=== PATIENT | male | born 1945 | race Caucasian/White ===

== ENCOUNTER 2020-10-15 02:30 | Emergency (ER) | payer OTHER, MEDICARE ==
[~2020-10-15] VITALS: Ht 175.3 cm; Wt 86.4 kg
[2020-10-15] MEDS ORDERED: nitroGLYCERIN-Tridil 50MG/D5W 250 ML IV PRN ×2 (02:40→02:55)
[2020-10-15] MEDS ORDERED: heparin 25,000 UNIT/250ml bag 250 ML IV SCH (02:45)
[2020-10-15] MEDS ORDERED: heparin 10,000 units/1 ML INJ IV ONE ×2 (02:45→02:55)
[2020-10-15] MEDS ORDERED: heparin 10,000 units/1 ML INJ IV PRN (02:45)
[2020-10-15 02:53] LABS: BASOPHILS % (AUTO) 0.6 % (0-1); EOSINOPHILS # (AUTO) 0.2 X10'3 (0-0.9); EOSINOPHILS % (AUTO) 3.2 % (0-6); HEMATOCRIT 41.9 % (42.0-52.0); HEMOGLOBIN 13.8 g/dl (14.0-17.9); LYMPHOCYTES # (AUTO) 1.5 X10'3 (1.1-4.8); LYMPHOCYTES % (AUTO) 21.3 % (21-51); MEAN CORPUSCULAR VOLUME 93.8 FL (78-98); MEAN PLATELET VOLUME 8.9 FL (7.4-10.4); MONOCYTES # (AUTO) 0.7 X10'3 (0-0.9); MONOCYTES % (AUTO) 9.9 % (2-12); NEUTROPHILS # (AUTO) 4.4 X10'3 (1.8-7.7); PLATELET COUNT 161 X10'3 (140-440); RED BLOOD COUNT 4.47 X10'6 (4.70-6.10); WHITE BLOOD COUNT 6.8 X10'3 (4.5-11.0)
[2020-10-15 03:02] LABS: PARTIAL THROMBOPLASTIN TIME 35 SECONDS (22-32)
[2020-10-15 03:04] LABS: ALANINE AMINOTRANSFERASE 41 U/L (12-78); ALBUMIN 3.6 G/DL (3.4-5.0); ALBUMIN/GLOBULIN RATIO 1.1 (1.1-1.5); ALKALINE PHOSPHATASE 120 IU/L (46-116); ANION GAP 11 (8-16); ASPARTATE AMINO TRANSFERASE 26 U/L (10-37); BILIRUBIN,TOTAL 0.2 MG/DL (0.1-1.0); BLOOD UREA NITROGEN 24 MG/DL (7-18); BUN/CREATININE RATIO 14.6 (5.4-32.0); CHLORIDE 106 MMOL/L (99-107); CREATININE 1.64 MG/DL (0.60-1.10); GLUCOSE 172 MG/DL (70-104); POTASSIUM 4.5 MMOL/L (3.5-5.1); SODIUM 142 MMOL/L (135-145); TOTAL CARBON DIOXIDE 25.3 MMOL/L (24-32); TOTAL PROTEIN 6.9 G/DL (6.4-8.2); eGFR 41 ML/MIN
--- NOTE | 2020-10-15 05:58 | NUR ---
L forearm IV infiltrated and was taken out with cannula intact. at bedside. 3HR Trop pending.
--- NOTE | 2020-10-15 06:55 | NUR ---
Heprin infusion stopped and MD Valladares aware pt Nitro gtt stopped by prior shift approx 0600. Pt CP to be monitored and if pt remains without CP pt may be discharged home around 0730am.
[2020-10-15 07:34] VITALS: BP 155/86
== END 2020-10-15 07:38 | disposition home or self-care (01) ==
LOC: ER 02:31
DX: R07.89 Other chest pain (principal); I25.10 Atherosclerotic heart disease of native coronary artery without angina pectoris; I10 Essential (primary) hypertension; Z88.8 Allergy status to other drugs, medicaments and biological substances
CPT/HCPCS: 36415; 71045; 80053; 83735; 83880; 84484; 85025; 85610; 85730; 93005; 96365; 96366; 96376; 99285; J1644

== ENCOUNTER 2020-10-17 10:38 | Day surgery (SDC) | payer MEDICARE ==
[~2020-10-17] VITALS: Ht 175.3 cm; Wt 90.0 kg
[2020-10-17] VITALS (11 sets, daily range): BP systolic 133–162; BP diastolic 57–108
[2020-10-17] MEDS ORDERED: LORazepam 0.5 MG tablet PO PRN (10:55)
[2020-10-17] MEDS ORDERED: LIDOcaine/PRILOcaine 5gm cream TP ONE (10:55)
[2020-10-17] MEDS ORDERED: diphenhydrAMINE 25mg capsule PO PRN (10:55)
[2020-10-17] MEDS ORDERED: normal saline 1,000 ML IV SCH (10:55)
[2020-10-17] MEDS ORDERED: NITR0.4T51 SL (11:19)
[2020-10-17] MEDS ORDERED: DILT120C88 PO (11:19)
[2020-10-17] MEDS ORDERED: AMIO200T62 PO (11:19)
[2020-10-17] MEDS ORDERED: METF500T PO (11:19)
[2020-10-17] MEDS ORDERED: ATOR40TA PO (11:19)
[2020-10-17] MEDS ORDERED: LOP25T PO (11:19)
[2020-10-17] MEDS ORDERED: LOSA25TA96 PO (11:19)
[2020-10-17] MEDS ORDERED: RIVA20TA PO (11:19)
[2020-10-17] MEDS ORDERED: CHOL100025 PO (11:19)
[2020-10-17] MEDS ORDERED: SILD50TA PO (11:19)
[2020-10-17 12:25] LABS: BASOPHILS % (AUTO) 0.7 % (0-1); EOSINOPHILS # (AUTO) 0.2 X10'3 (0-0.9); EOSINOPHILS % (AUTO) 2.9 % (0-6); HEMATOCRIT 41.2 % (42.0-52.0); HEMOGLOBIN 13.5 g/dl (14.0-17.9); LYMPHOCYTES # (AUTO) 1.1 X10'3 (1.1-4.8); LYMPHOCYTES % (AUTO) 17.1 % (21-51); MEAN CORPUSCULAR HEMOGLOBIN 30.6 PG (27.0-31.0); MEAN CORPUSCULAR HGB CONC 32.7 g/dL (33.0-36.5); MEAN CORPUSCULAR VOLUME 93.5 FL (78-98); MEAN PLATELET VOLUME 9.2 FL (7.4-10.4); MONOCYTES # (AUTO) 0.6 X10'3 (0-0.9); MONOCYTES % (AUTO) 9.7 % (2-12); NEUTROPHILS # (AUTO) 4.7 X10'3 (1.8-7.7); NEUTROPHILS % (AUTO) 69.6 % (42-75); PLATELET COUNT 185 X10'3 (140-440); RED BLOOD COUNT 4.41 X10'6 (4.70-6.10); RED CELL DISTRIBUTION WIDTH 14.9 % (11.5-14.5); WHITE BLOOD COUNT 6.7 X10'3 (4.5-11.0)
[2020-10-17 12:33] LABS: ALBUMIN 3.7 G/DL (3.4-5.0); ANION GAP 8 (8-16); BLOOD UREA NITROGEN 23 MG/DL (7-18); BUN/CREATININE RATIO 15.4 (5.4-32.0); CALCIUM 8.9 MG/DL (8.5-10.1); CHLORIDE 106 MMOL/L (99-107); CREATININE 1.49 MG/DL (0.60-1.10); GLUCOSE 140 MG/DL (70-104); POTASSIUM 4.9 MMOL/L (3.5-5.1); SODIUM 141 MMOL/L (135-145); TOTAL CARBON DIOXIDE 26.7 MMOL/L (24-32); eGFR 46 ML/MIN
[2020-10-17 12:38] LABS: PARTIAL THROMBOPLASTIN TIME 27 SECONDS (22-32)
[2020-10-17] MEDS ORDERED: verapamil 2.5 mg/ml inj IV ONE (14:57)
[2020-10-17] MEDS ORDERED: nitroGLYCERIN-Tridil 50MG/D5W 250 ML IV ONE (14:57)
[2020-10-17] MEDS ORDERED: midazolam 1 mg/ML 2ml injection ONE (14:58)
[2020-10-17] MEDS ORDERED: fentaNYL/PF 50MCG/1 ML 2ML syringe ONE (14:58)
[2020-10-17] MEDS ORDERED: heparin 1,000unit/ml 10ml vial 10 ML ONE (14:58)
[2020-10-17] MEDS ORDERED: LIDOcaine 1% (10mg/ml)w/preservative injection 20ml MDV ONE (14:58)
[2020-10-17] MEDS ORDERED: iohexol 350MG/ML 100ml bottle IV ONE ×2 (14:58→15:29)
[2020-10-17] MEDS ORDERED: ticagrelor 90mg tablet ONE (15:47)
--- NOTE | 2020-10-17 16:00 | NUR ---
JUAN RN GAVE PATIENT 180MG PO BRILINTA AT BEDSIDE WHEN PATIENT RETURNED TO ROOM. PATIENT VITALS STABLE, VASC BAND CDI, NO HEMATOMA.
[2020-10-17] MEDS ORDERED: HYDROcodone/acetaminophen 10/325mg tab PO PRN (16:35)
[2020-10-17] MEDS ORDERED: ondansetron/PF 4mg/2ml inj IV PRN (16:35)
[2020-10-17] MEDS ORDERED: HYDROcodone/acetaminophen 5mg/325mg tablet PO PRN (16:35)
[2020-10-17] MEDS ORDERED: proCHLORperazine 10 MG/2 ml inj IV PRN (16:35)
[2020-10-17] MEDS ORDERED: OXAZEpam 15mg capsule PO PRN (16:35)
== END 2020-10-17 20:30 | disposition home or self-care (01) ==
LOC: SSTAY O 10:38
PROVIDERS: ATTEND Internal Medicine Interventional Cardiology
DX: I25.110 Atherosclerotic heart disease of native coronary artery with unstable angina pectoris (principal); E11.9 Type 2 diabetes mellitus without complications; I10 Essential (primary) hypertension; I48.0 Paroxysmal atrial fibrillation; E78.5 Hyperlipidemia, unspecified; Z95.5 Presence of coronary angioplasty implant and graft; Z88.8 Allergy status to other drugs, medicaments and biological substances; Z79.899 Other long term (current) drug therapy; Z79.84 Long term (current) use of oral hypoglycemic drugs
CPT/HCPCS: 36415; 80048; 82948; 85025; 85610; 85730; 93005; 93458; 99152; 99153; C1725; C1751; C1769; C1874; C1894; C9600; J1644; J2001; J2250; J3010; J7030; Q0163; Q9967; A4620; J3490

== ENCOUNTER 2021-06-26 09:50 | Outpatient (CLI) | payer MEDICARE ==
[2021-06-26] VITALS (19 sets, daily range): BP systolic 129–205; BP diastolic 73–106
[~2021-06-26 09:50] MED LIST: AMIO200T62 PO; ATOR40TA PO; CHOL100025 PO; DILT120C88 PO; LOP25T PO; LOSA25TA96 PO; METF500T PO; NITR0.4T51 SL; RIVA20TA PO; SILD50TA PO
== END 2021-06-26 23:59 | disposition home or self-care (01) ==
LOC: CARD DIAG 09:50
PROVIDERS: ATTEND Internal Medicine Interventional Cardiology
DX: R55 Syncope and collapse (principal)
CPT/HCPCS: 93660

== ENCOUNTER 2021-09-03 18:26 | Inpatient (IN) | payer MEDICARE ==
[~2021-09-03] VITALS: Ht 152.4 cm; Wt 89.5 kg
--- NOTE | 2021-09-03 18:44 | NUR ---
SPOKE W/ DR MCFARLAND S/P TRIAGING PT. HE HAS REVIEWED EKG. LABS ARE BEING DRAWN IN ROOM 19.
[2021-09-03] MEDS ORDERED: hydrALAZINE 20mg/ml inj. IV ONE (18:55)
[2021-09-03] MEDS ORDERED: aspirin 325mg tablet PO ONE (18:55)
[2021-09-03 18:57] LABS: BASOPHILS # (AUTO) 0.1 X10'3 (0-0.2); BASOPHILS % (AUTO) 0.9 % (0-1); EOSINOPHILS # (AUTO) 0.1 X10'3 (0-0.9); EOSINOPHILS % (AUTO) 2.1 % (0-6); HEMATOCRIT 38.8 % (42.0-52.0); HEMOGLOBIN 12.5 g/dl (14.0-17.9); LYMPHOCYTES # (AUTO) 1.3 X10'3 (1.1-4.8); MEAN CORPUSCULAR HEMOGLOBIN 28.8 PG (27.0-31.0); MEAN CORPUSCULAR HGB CONC 32.2 g/dL (33.0-36.5); MEAN CORPUSCULAR VOLUME 89.2 FL (78-98); MEAN PLATELET VOLUME 8.7 FL (7.4-10.4); MONOCYTES # (AUTO) 0.4 X10'3 (0-0.9); MONOCYTES % (AUTO) 6.6 % (2-12); NEUTROPHILS # (AUTO) 4.6 X10'3 (1.8-7.7); NEUTROPHILS % (AUTO) 70.4 % (42-75); PLATELET COUNT 184 X10'3 (140-440); RED BLOOD COUNT 4.35 X10'6 (4.70-6.10); RED CELL DISTRIBUTION WIDTH 14.1 % (11.5-14.5); WHITE BLOOD COUNT 6.5 X10'3 (4.5-11.0)
[2021-09-03 19:10] LABS: ALANINE AMINOTRANSFERASE 34 U/L (12-78); ALBUMIN 3.5 G/DL (3.4-5.0); ALBUMIN/GLOBULIN RATIO 1.1 (1.1-1.5); ALKALINE PHOSPHATASE 84 IU/L (46-116); ANION GAP 9 (8-16); ASPARTATE AMINO TRANSFERASE 29 U/L (10-37); BILIRUBIN,TOTAL 0.3 MG/DL (0.1-1.0); BLOOD UREA NITROGEN 26 MG/DL (7-18); BUN/CREATININE RATIO 18.7 (5.4-32.0); CALCIUM 9.1 MG/DL (8.5-10.1); CHLORIDE 105 MMOL/L (99-107); CREATININE 1.39 MG/DL (0.60-1.10); GLUCOSE 140 MG/DL (70-104); POTASSIUM 4.3 MMOL/L (3.5-5.1); SODIUM 140 MMOL/L (135-145); TOTAL CARBON DIOXIDE 25.9 MMOL/L (24-32); TOTAL PROTEIN 6.8 G/DL (6.4-8.2); eGFR 50 ML/MIN
[2021-09-03] MEDS ORDERED: heparin 25,000 UNIT/250ml bag 250 ML IV SCH (19:50)
[2021-09-03] MEDS ORDERED: heparin 10,000 units/1 ML INJ IV ONE (19:50)
[2021-09-03] MEDS ORDERED: heparin 10,000 units/1 ML INJ IV PRN (19:50)
[2021-09-03 20:05] LABS: APTT 28 SECONDS (22-32)
--- NOTE | 2021-09-03 20:09 | NUR ---
PATIENT ID Addendum: 09/03/21 at 2009 by TELMORE PATIENT AT THIS TIME IS EXPERINCEING INTERMITTENT CHEST PAIN THAT LAST ABOUT SECONDS, X 2 PATIENT ALSO STATES THAT HE IS FEELING SOB
[2021-09-03] MEDS ORDERED: fentaNYL/PF 50MCG/1 ML 2ML syringe IV ONE (20:15)
[2021-09-03] MEDS ORDERED: CLOP75TA4 PO (20:21)
[2021-09-03] MEDS ORDERED: ASPI-257 PO (20:21)
--- NOTE | 2021-09-03 20:22 | NUR ---
PATIENT STATES THAT HIS INTENSITY HAS GROWN IN THE LAST HOUR, HE SAID THE PAIN IS IDENTICAL TO WHEN HE WAS HAVING A MS
[2021-09-04] VITALS (7 sets, daily range): BP systolic 159–188; BP diastolic 73–92
[2021-09-04] MEDS ORDERED: MESSAGE TO PHARMACY PO ONE (00:15)
[2021-09-04] MEDS ORDERED: bisacodyl 10mg suppository rectal RC PRN (00:15)
[2021-09-04] MEDS ORDERED: glucagon, human recombinant 1mg kit SUBCUT PRN (00:15)
[2021-09-04] MEDS ORDERED: HYDROcodone/acetaminophen 10/325mg tab PO PRN (00:15)
[2021-09-04] MEDS ORDERED: acetaminophen 650mg rectal suppository RC PRN (00:15)
[2021-09-04] MEDS ORDERED: ondansetron/PF 4mg/2ml inj IV PRN (00:15)
[2021-09-04] MEDS ORDERED: diphenhydrAMINE 25mg capsule PO PRN (00:15)
[2021-09-04] MEDS ORDERED: diphenhydrAMINE 50 mg/ml inj IV PRN (00:15)
[2021-09-04] MEDS ORDERED: magnesium hydroxide 30ml (MOM) UD suspension PO PRN (00:15)
[2021-09-04] MEDS ORDERED: DEXTROSE 15 GM of carb/4 tabs (each vial/BOTTLE has 4 tablets) PO PRN ×2 (00:15)
[2021-09-04] MEDS ORDERED: acetaminophen 325mg tablet PO PRN ×2 (00:15)
[2021-09-04] MEDS ORDERED: HYDROcodone/acetaminophen 5mg/325mg tablet PO PRN (00:15)
[2021-09-04] MEDS ORDERED: dextrose 50%-water 50ml dispensing syringe IV PRN ×2 (00:15)
[2021-09-04] MEDS ORDERED: morphine 2 MG/ML inj. syringe IV PRN (00:15)
[2021-09-04] MEDS ORDERED: mag hydrox/Alum hydrox/simeth 30ml oral suspension PO PRN (00:15)
[2021-09-04] MEDS: normal saline 1000ml 1,000 ML IV SCH ×3 (01:09→18:00)
[2021-09-04 02:05] LABS: BASOPHILS % (AUTO) 0.3 % (0-1); EOSINOPHILS # (AUTO) 0.2 X10'3 (0-0.9); EOSINOPHILS % (AUTO) 3.2 % (0-6); HEMATOCRIT 36.6 % (42.0-52.0); LYMPHOCYTES # (AUTO) 1.8 X10'3 (1.1-4.8); LYMPHOCYTES % (AUTO) 28.3 % (21-51); MEAN CORPUSCULAR HGB CONC 32.8 g/dL (33.0-36.5); MEAN CORPUSCULAR VOLUME 88.4 FL (78-98); MEAN PLATELET VOLUME 9.1 FL (7.4-10.4); MONOCYTES # (AUTO) 0.6 X10'3 (0-0.9); MONOCYTES % (AUTO) 8.7 % (2-12); NEUTROPHILS # (AUTO) 3.9 X10'3 (1.8-7.7); NEUTROPHILS % (AUTO) 59.5 % (42-75); PLATELET COUNT 182 X10'3 (140-440); RED BLOOD COUNT 4.14 X10'6 (4.70-6.10); RED CELL DISTRIBUTION WIDTH 13.7 % (11.5-14.5); WHITE BLOOD COUNT 6.5 X10'3 (4.5-11.0)
[2021-09-04 02:19] LABS: HEMOGLOBIN A1C 7.4 % (4.5-6.2)
[2021-09-04 02:21] LABS: MAGNESIUM 1.9 MG/DL (1.5-2.4); PHOSPHORUS 3.1 MG/DL (2.3-4.5)
[2021-09-04 02:33] LABS: D-DIMER < 0.19 MG/L FEU (0-0.50)
[2021-09-04] MEDS ORDERED: nitroGLYCERIN 0.4mg SUBLingual tab SL PRN (02:35)
[2021-09-04] MEDS ORDERED: clopidogrel 75mg tablet PO SCH (02:41)
[2021-09-04] MEDS ORDERED: hydrALAZINE 20mg/ml inj. IV ONE (02:45)
[2021-09-04] MEDS: clopidogrel 75mg tablet PO SCH ×2 (02:50→21:45)
--- NOTE | 2021-09-04 03:12 | NUR ---
received report. pt waiting for PTT result. NPO since came to ER. room ready for patient.
[2021-09-04 03:25] LABS: APTT 46 SECONDS (22-32)
--- NOTE | 2021-09-04 04:45 | NUR ---
pt c/o chest pain, sub sternal, sharp, then disappears after a few seconds. pt declines morphine, norco or nitro at this time. will notify RN if anything changes. oriented to room, call light, urinal, has emesis bag at bedside. heparin and NS infusing
--- NOTE | 2021-09-04 06:17 | NUR ---
reported to days. noted pt resting, eyes closed. called to check on patient and see about visiting. will arrive around 8am
--- NOTE | 2021-09-04 07:16 | NUR ---
Paged Dr Augustin PAGER ID: [phone] MESSAGE: [phone]. Shoaib Kc. Bhumika scan? Thx, Rosana [phone]
[2021-09-04] MEDS: pantoprazole 40mg Tablet.DR PO SCH (07:40)
[2021-09-04] MEDS: diltiazem CD 120mg capsule (once-daily) PO SCH (07:40)
[2021-09-04] MEDS: docusate sod 100mg capsule PO SCH ×2 (07:41→21:39)
[2021-09-04] MEDS: amiodarone 200mg tablet PO SCH (07:49)
[2021-09-04] MEDS: atorvastatin 20mg tablet PO SCH (07:51)
[2021-09-04] MEDS: metoprolol tartrate 25mg tablet PO SCH ×2 (07:53→20:00)
[2021-09-04] MEDS ORDERED: losartan 25mg tablet PO SCH (08:00)
[2021-09-04] MEDS: aspirin 81mg, enteric-coated 1 TAB TABLET.DR PO SCH (08:00)
[2021-09-04] MEDS: rivaroxaban 20mg tablet PO SCH (08:00)
--- NOTE | 2021-09-04 08:24 | NUR ---
Per Dr Augustin, ok to hold xarelto for today.
[2021-09-04] MEDS: morphine 2 MG/ML inj. syringe IV PRN ×2 (09:08→14:50)
--- NOTE | 2021-09-04 11:35 | NUR ---
DM consult: Noted pt w/ hx of DM A1c 7.4. Written DM ed w/ RD contact info placed in pt chart. Addendum: 09/04/21 at [address] Amended: Links added.
[2021-09-04] MEDS: insulin Lispro (HumaLOG) vial - multi-dose SQ SCH (14:14)
[2021-09-04] MEDS: ondansetron 4mg rapidly disintigrating tab PO PRN (16:06)
[2021-09-04] MEDS ORDERED: nitroGLYCERIN-Tridil 50MG/D5W 250 ML IV ONE (17:05)
[2021-09-04] MEDS ORDERED: midazolam 1 mg/ML 2ml injection ONE (17:06)
[2021-09-04] MEDS ORDERED: fentaNYL/PF 50MCG/1 ML 2ML syringe ONE (17:06)
[2021-09-04] MEDS ORDERED: LIDOcaine 1% (10mg/ml)w/preservative inj. 20ml MDV ONE (17:06)
[2021-09-04] MEDS ORDERED: verapamil 2.5 mg/ml inj IV ONE (17:06)
[2021-09-04] MEDS ORDERED: heparin 1,000unit/ml 10ml vial 10 ML ONE (17:06)
[2021-09-04] MEDS ORDERED: iohexol 350MG/ML 100ml bottle IV ONE (17:06)
--- NOTE | 2021-09-04 18:28 | NUR ---
Patient in room MED 318. I have received report from TREVIN Wayne and had the opportunity to ask questions and assume patient care.
[2021-09-04] MEDS ORDERED: heparin 25,000 UNIT/250ml bag 250 ML IV ONE (18:51)
[2021-09-04] MEDS ORDERED: ondansetron/PF 4mg/2ml inj IM ONE (19:30)
[2021-09-04] MEDS ORDERED: ondansetron/PF 4mg/2ml inj IV ONE (20:00)
[2021-09-04] MEDS ORDERED: insulin glargine (Lantus) pen - multi-dose SQ SCH (21:00)
[2021-09-04] MEDS: temazepam 15mg capsule PO PRN ×2 (21:38→21:44)
[2021-09-04] MEDS ORDERED: hydrALAZINE 20mg/ml inj. IV PRN ×2 (21:55→22:10)
[2021-09-05 02:00] VITALS: BP 157/65
[2021-09-05] MEDS: ondansetron 4mg rapidly disintigrating tab PO PRN ×2 (02:18→07:49)
[2021-09-05] MEDS: normal saline 1000ml 1,000 ML IV SCH (03:08)
--- NOTE | 2021-09-05 04:54 | NUR ---
Pt. walked with nursing 200F.He did very well ,no pain at all. Addendum: 09/05/21 at 0456 by Stpehanie Bishop RN wrong pt.
[2021-09-05 06:00] VITALS: BP 148/75
[2021-09-05 06:47] LABS: BASOPHILS % (AUTO) 0.4 % (0-1); EOSINOPHILS # (AUTO) 0.1 X10'3 (0-0.9); EOSINOPHILS % (AUTO) 1.3 % (0-6); HEMATOCRIT 37.2 % (42.0-52.0); HEMOGLOBIN 12.2 g/dl (14.0-17.9); LYMPHOCYTES # (AUTO) 0.8 X10'3 (1.1-4.8); LYMPHOCYTES % (AUTO) 11.6 % (21-51); MEAN CORPUSCULAR HEMOGLOBIN 28.9 PG (27.0-31.0); MEAN CORPUSCULAR HGB CONC 32.9 g/dL (33.0-36.5); MEAN CORPUSCULAR VOLUME 87.9 FL (78-98); MEAN PLATELET VOLUME 8.6 FL (7.4-10.4); MONOCYTES # (AUTO) 0.5 X10'3 (0-0.9); MONOCYTES % (AUTO) 6.5 % (2-12); NEUTROPHILS # (AUTO) 5.7 X10'3 (1.8-7.7); NEUTROPHILS % (AUTO) 80.2 % (42-75); PLATELET COUNT 183 X10'3 (140-440); RED BLOOD COUNT 4.23 X10'6 (4.70-6.10); RED CELL DISTRIBUTION WIDTH 13.8 % (11.5-14.5); WHITE BLOOD COUNT 7.1 X10'3 (4.5-11.0)
[2021-09-05 07:01] LABS: ALANINE AMINOTRANSFERASE 31 U/L (12-78); ALBUMIN 3.1 G/DL (3.4-5.0); ALKALINE PHOSPHATASE 67 IU/L (46-116); ANION GAP 11 (8-16); ASPARTATE AMINO TRANSFERASE 17 U/L (10-37); BILIRUBIN,TOTAL 0.3 MG/DL (0.1-1.0); BLOOD UREA NITROGEN 16 MG/DL (7-18); CALCIUM 8.7 MG/DL (8.5-10.1); CHLORIDE 108 MMOL/L (99-107); CHOL/HDL RATIO 2.8 (0.00-4.99); CHOLESTEROL 127 MG/DL (0-200); CREATININE 1.23 MG/DL (0.60-1.10); GLUCOSE 150 MG/DL (70-104); HDL CHOLESTEROL 46 MG/DL (35-60); LDL CHOLESTEROL 66 MG/DL (50-100); POTASSIUM 4.1 MMOL/L (3.5-5.1); SODIUM 142 MMOL/L (135-145); TOTAL CARBON DIOXIDE 23.2 MMOL/L (24-32); TOTAL PROTEIN 6.1 G/DL (6.4-8.2); TRIGLYCERIDES 84 MG/DL (20-135); eGFR 58 ML/MIN
[2021-09-05] MEDS ORDERED: lisinopril 20mg tablet PO SCH (08:00)
[2021-09-05] MEDS: docusate sod 100mg capsule PO SCH (08:00)
[2021-09-05] MEDS: aspirin 81mg, enteric-coated 1 TAB TABLET.DR PO SCH (08:00)
[2021-09-05] MEDS: atorvastatin 20mg tablet PO SCH (09:47)
[2021-09-05] MEDS: amiodarone 200mg tablet PO SCH (09:47)
[2021-09-05] MEDS: diltiazem CD 120mg capsule (once-daily) PO SCH (09:48)
[2021-09-05] MEDS: pantoprazole 40mg Tablet.DR PO SCH (09:50)
[2021-09-05] MEDS: rivaroxaban 20mg tablet PO SCH (09:51)
[2021-09-05] MEDS: insulin Lispro (HumaLOG) vial - multi-dose SQ SCH (09:55)
[2021-09-05 10:00] VITALS: BP 157/86
[2021-09-05] MEDS ORDERED: LISI20TA28 PO (10:14)
[2021-09-05] MEDS ORDERED: ONDA4TAB12 PO (10:15)
--- NOTE | 2021-09-05 11:58 | NUR ---
Pt discharged to home from the hospital. Discharge paperwork reviewed and signed with this adjusto writer operator. Paper prescriptions were provided to the pt. Belongings were returned. Telemetry and PIV removed prior to discharge. All questions and concerns were answered. Pt needed to wait at the hospital for forty minutes for their ride home to arrive.
--- NOTE | 2021-09-05 13:58 | NUR ---
Orientee documentation: I have reviewed and agree with all interventions, assessments performed and documented by TREVIN Duffy.
== END 2021-09-05 11:58 | disposition home or self-care (01) | DRG 287 ==
LOC: ER 18:27 → UNDOADMIN 09-04 00:20 → ED HOLD 09-04 00:20 → EDBEDREQ 09-04 01:52 → MED 3N 09-04 03:20 → ED HOLD 09-04 03:20
PROVIDERS: ADMIT Family Medicine; ATTEND Internal Medicine
PROC: 4A023N7 Measurement of Cardiac Sampling and Pressure, Left Heart, Percutaneous Approach (ICD-10-PCS; principal; 2021-09-04)
PROC: B2111ZZ Fluoroscopy of Multiple Coronary Arteries using Low Osmolar Contrast (ICD-10-PCS; 2021-09-04)
DX: I25.110 Atherosclerotic heart disease of native coronary artery with unstable angina pectoris (principal); N17.9 Acute kidney failure, unspecified; I48.0 Paroxysmal atrial fibrillation; E11.22 Type 2 diabetes mellitus with diabetic chronic kidney disease; I12.9 Hypertensive chronic kidney disease with stage 1 through stage 4 chronic kidney disease, or unspecified chronic kidney disease; N18.9 Chronic kidney disease, unspecified; R00.1 Bradycardia, unspecified; Z79.01 Long term (current) use of anticoagulants; Z79.02 Long term (current) use of antithrombotics/antiplatelets; Z79.84 Long term (current) use of oral hypoglycemic drugs; I25.2 Old myocardial infarction; Z95.5 Presence of coronary angioplasty implant and graft; Z88.8 Allergy status to other drugs, medicaments and biological substances; Z79.899 Other long term (current) drug therapy
CPT/HCPCS: 36415; 71045; 80053; 80061; 82948; 83036; 83690; 83735; 83880; 84100; 84443; 84484; 85025; 85379; 85610; 85730; 87081; 93005; 93306; 93458; 96374; 96375; 96376; 99152; 99285; A4620; A5120; C1769; C1894; G0378; J0360; J1644; J1815; J2250; J2270; J2405; J3010; J3490; J7030; Q9967